=== PATIENT | female | born 1985 | race Caucasian/White ===

== ENCOUNTER 2017-01-24 16:24 | Emergency (ER) | payer MEDICAID ==
[~2017-01-24] VITALS: Ht 152.4 cm; Wt 69.0 kg
[2017-01-24] MEDS ORDERED: IBUPROFEN 600MG TABLET PO ONE (18:30)
[2017-01-24 19:25] VITALS: BP 132/84
== END 2017-01-24 19:35 | disposition home or self-care (01) ==
LOC: ER 16:39
DX: R07.9 Chest pain, unspecified (principal); R03.0 Elevated blood-pressure reading, without diagnosis of hypertension; F12.10 Cannabis abuse, uncomplicated
CPT/HCPCS: 71010; 81025; 93005; 99284; Z7610